=== PATIENT | male | born 1945 | race Hispanic/Latino ===

== ENCOUNTER 2023-08-19 15:27 | Emergency (ER) | payer MEDICARE, OTHER, SELFPAY ==
[2023-08-19 15:35] VITALS: BP 113/50
[2023-08-19 15:58] LABS: % Basophils 0.5 % (0-2); % Eosinophils 1.4 % (0-6); % Immature Granulocytes 0.2 % (0-0.5); % Lymphocytes 14.9 % (20.5-51.1); % Monocytes 10.5 % (1.7-9.3); % Neutrophils 72.5 % (42.2-75.2); Absolute Eosinophils 0.1 10^3/uL (0-0.7); Absolute Lymphocytes 0.9 10^3/uL (1.2-3.4); Absolute Monocytes 0.6 10^3/uL (0.1-0.6); Absolute Neutrophils 4.3 10^3/uL (1.4-6.5); Hematocrit 29.2 % (39.0-52.0); Hemoglobin 10.8 g/dL (13.0-18.0); Mean Corpuscular Hgb 33.1 pg (27.0-31.0); Mean Corpuscular Volume 89.6 fL (80.0-94.0); Mean Platelet Volume 10.5 fL (7.4-10.4); Nucleated Red Blood Cells % 0 % (-); Platelet Count 194 10^3/uL (130-400); Red Blood Cell Count 3.26 10^6/uL (4.70-6.10); Red Cell Dist. Width 12.8 % (11.5-14.5); White Blood Cell Count 5.9 10^3/uL (4.8-10.8)
[2023-08-19 16:10] LABS: ALT (SGPT) 13 U/L (0-50); AST (SGOT) 31 U/L (17-59); Albumin 4.3 g/dl (3.5-5.0); Alkaline Phosphatase 81 U/L (38-126); Blood Urea Nitrogen 17 mg/dl (9-20); Calcium 9.3 mg/dl (8.4-10.2); Carbon Dioxide 28 mmol/L (22-30); Chloride 102 mmol/L (98-107); Glucose 107 mg/dl (70-99); Potassium 4.4 mmol/L (3.5-5.1); Sodium 139 mmol/L (135-145); Total Bilirubin 0.4 mg/dl (0.2-1.3); Total Protein 6.4 g/dl (6.3-8.2); eGFR 51.13
[2023-08-19 17:56] VITALS: BMI 24.5
[2023-08-19 18:00] VITALS: BP 143/58
--- NOTE | 2023-08-19 18:07 | EDRN ---
Nicolasa FELDER in room w/pt.
--- NOTE | 2023-08-19 18:37 | ED.GENMED ---
History of Present Illness
General
Chief Complaint: Fall
Source: patient and spouse
Exam Limitations: none
Time Seen by Provider: 08/19/23 17:32
Nursing documentation reviewed up to this point in time: agreed with
Travel History
Have you had any contact with someone who has COVID-19?: No
Do you have any symptoms of coronavirus? Fever > 100 degrees, chills, cough, shortness of breath, sore throat, loss of taste or smell, muscle aches, or headache?: No
History of Present Illness
History of Present Illness:
77-year-old male with Tre history of dementia hypertension presenting to the emergency department today after a fall he had yesterday injuring his right hip ongoing discomfort to the right hip. Denies any his head denies losing consciousness
does remember the event has been having recurrent falls secondary to Parkinson's. Does fall very frequently has had slightly increased falling over the past week after having some improvement over the past month secondary to Parkinson's medications
that he started 1 month ago. Denies any chest pain shortness of breath numbness weakness. No changes in urination or bowel movements
Past History
Past History
ED Past Medical History: Cancer (bladder), HTN and Other (dementia)
ED Past Surgical History: Appendectomy
Social History
Tobacco: Former smoker
Alcohol: None
Drug: None
Personal:
Living: with family
Employment: Other
Family History
Family History: Other
Review of Systems
Review of Systems
Allergies reviewed?: Yes
All Other Systems: ROS reviewed and negative except as documented in HPI and ROS
Phy Exam
Physical Exam
Physical Exam:
GENERAL: Alert , in no apparent distress
EYE: pupils equal and reactive
NECK: Supple, no significant adenopathy.
ENT: o/p clr, mmm.
CARDIAC: Regular rate and rhythm .
LUNGS: Clear breath sounds bilaterally, no acute respiratory distress, no wheezes/rales/rhonchi
ABDOMEN: Soft, without focal tenderness, no r/g, no cvat
NEUROLOGICAL: Alert and oriented, no focal neuro deficits
SKIN: Warm and dry, skin intact.
MUSCULOSKELETAL: Mild pain to palpation to the right lateral hip otherwise able to move at the hip with full range of motion no overlying skin changes no edema, well perfused.
PSYCH: Normal and appropriate interaction.
Course
Orders/Labs/Results
Orders:
Orders
08/19/23 15:47
Complete Blood Count/With Diff Urgent
Comprehensive Metabolic Panel Urgent
08/19/23 18:20
Hip, Right 2-3 Views [CR Hip - RT w/wo Pel 2-3 Vw*] Urgent
Comment:
Reason For Exam: right hip pain after fall
Include a pelvis x-ray?: Yes
08/19/23 18:46
Ambulate Patient-Treatment ONCE
08/19/23 20:03
Case Management Consult ONCE
Case Management Consult: VN/Home Care
Abnormal Lab Results
08/19/23
15:47
RBC 3.26 L 10^6/uL
(4.70-6.10)
Hgb 10.8 L g/dL
(13.0-18.0)
Hct 29.2 L %
(39.0-52.0)
MCH 33.1 H pg
(27.0-31.0)
MPV 10.5 H fL
(7.4-10.4)
Absolute Lymphs (auto) 0.9 L 10^3/uL
(1.2-3.4)
Lymphocytes % 14.9 L %
(20.5-51.1)
Monocytes % 10.5 H %
(1.7-9.3)
Creatinine 1.4 H mg/dL
(0.7-1.3)
Glucose 107 H mg/dl
(70-99)
08/19/23 15:47
08/19/23 15:47
Vital Signs
Initial and Last Documented VS:
Initial Vital Signs
Temp Pulse Resp BP Pulse Ox
98.0 F 60 16 113/50 98
08/19/23 15:35 08/19/23 15:35 08/19/23 15:35 08/19/23 15:35 08/19/23 15:35
Last Documented Vital Signs
Temp Pulse Resp BP Pulse Ox
98.0 F 53 16 143/58 98
08/19/23 15:35 08/19/23 18:00 08/19/23 18:00 08/19/23 18:00 08/19/23 18:00
MDM/Problems Addressed
MDM/Problems Addressed:
77-year-old male presenting to the emergency department today with concerns of a fall at home does fall frequently secondary to Parkinson's at this point having hip discomfort. Denies additional concerns denies head trauma no neck pain no
additional signs of injury or discomfort from head to toe otherwise. X-ray performed of the hip. No emergent findings able to ambulate well with his walker after this. Appear stable for outpatient management consult placed for case management to
discuss any potential need of additional home care. Return precautions given.
*Critical Care Note
Total Time (30-74mins, 75-104mins- exclusive of procedures): Not Applicable
ED Attending Note
-
Portions of this chart may have been created with voice recognition software.� Occasional wrong word or��sound alike� substitutions may have occurred due to the inherent limitations of voice recognition software.
Discharge Plan
Departure
Patient Disposition: Home (Routine Discharge)
Date of Disposition: 08/19/23
Time of Disposition: 20:03
Patient with high blood pressure during this ER visit?: No
Condition: Good
Covid-19: Not Applicable
Discharge Problem:
Fall
Instructions: Preventing falls in adults
Referrals:
Juan C Sethi Jr., DO [Family Provider] -
Activity Restrictions/Additional Instructions:
You can to the emergency department today with concerns after a fall. You have an x-ray without signs of fracture. Please follow closely with your primary care doctor. Return to the emergency department for any worsening, new or concerning
symptoms.
Interventions
Interventions:
*Risk Screen - Suicide Last Done: 08/19/23 17:54
*General Assessment Last Done: 08/19/23 17:54
*Neglect/Abuse Screening Last Done: 08/19/23 17:54
ED- Fall Risk Assessment Last Done: 08/19/23 17:54
*ED COVID-19 Vaccine History Last Done: 08/19/23 15:35
*Nursing Disposition Last Done: 08/19/23 20:07
ED-Musculoskeletal Assessment Last Done: 08/19/23 17:56
ED- Neurological Assessment Last Done: 08/19/23 17:56
ED-Skin Assessment Last Done: 08/19/23 17:57
Discharge Date and Time
Discharge Date/Time: 08/19/23 20:08
--- NOTE | 2023-08-20 10:07 | CM ---
CM was consulted for home PT. CM spoke with patient's via phone and she is agreeable to [facility] to make arrangements for [facility]N. CM updated [facility] liaison engineer with new referral. CM will continue to follow as needed.
--- NOTE | 2023-08-20 10:18 | VNURNOTE ---
Home Health Liaison spoke with patient's Alysa by phone at [phone] to discuss [facility] nurse/therapy, visits, schedule and homebound status. Alysa is agreeable and understands that visits at home will be 2-3 x per week to assess and teach medical
management. Private caregiver discussed and she is unable to hire help but interested in more information.
Ada is aware that [facility] will contact them for start of care in 1-2 days after discharge from .
[facility] referral completed in [facility].
== END 2023-08-19 20:08 | disposition home or self-care (01) ==
LOC: EMR 15:27
PROVIDERS: Emergency Medicine; EMERGENCY PHYSICIAN Emergency Medicine; FAMILY PHYSICIAN Family Medicine
DX: M25.551 Pain in right hip (principal); W19.XXXA Unspecified fall, initial encounter; G20.A1 Parkinson's disease without dyskinesia, without mention of fluctuations; Z87.891 Personal history of nicotine dependence
CPT/HCPCS: 99284; 73502; 80053; 85025

== ENCOUNTER 2024-03-16 14:01 | Emergency (ER) | payer MEDICARE, OTHER, SELFPAY ==
[2024-03-16 14:03] VITALS: BP 148/50
[2024-03-16] MEDS: TORADOL 30 MG IM (16:54)
--- NOTE | 2024-03-16 17:29 | ED.GENMED ---
History of Present Illness
General
Chief Complaint: Fall
Source: patient and spouse
Exam Limitations: none
Time Seen by Provider: 03/16/24 15:00
Nursing documentation reviewed up to this point in time: agreed with
History of Present Illness
History of Present Illness:
6-year-old male past medical history of Alzheimer's Parkinson's presenting to the emergency department after 2 falls over the past week. He claims that he does fall commonly. He denies the falls being out of the ordinary for him. He has had some
ongoing left-sided rib pain and low back pain since which prompted him to come to the ER. He denies any lightheadedness chest pain shortness of breath palpitations preceding the falls. He claims that the falls were mechanical.
Past History
Past History
ED Past Medical History: Cancer (bladder), HTN and Other (dementia)
ED Past Surgical History: Appendectomy
Social History
Tobacco: Former smoker
Alcohol: None
Drug: None
Personal:
Living: with family
Employment: Other
Family History
Family History: Other
Review of Systems
Review of Systems
Allergies reviewed?: Yes
All Other Systems: ROS reviewed and negative except as documented in HPI and ROS
Phy Exam
Physical Exam
Physical Exam:
GENERAL: Alert , in no apparent distress
EYE: pupils equal and reactive
NECK: Supple, no significant adenopathy.
ENT: o/p clr, mmm.
CARDIAC: Regular rate and rhythm .
LUNGS: Clear breath sounds bilaterally, no acute respiratory distress, no wheezes/rales/rhonchi
ABDOMEN: Soft, without focal tenderness, no r/g, no cvat
NEUROLOGICAL: Alert and oriented, no focal neuro deficits
SKIN: Warm and dry, skin intact.
MUSCULOSKELETAL: Mild pain to palpation to the left lateral lower ribs no edema, well perfused.
PSYCH: Normal and appropriate interaction.
Course
Orders/Labs/Results
Orders:
Orders
03/16/24 15:36
CR Ribs-left 3 Vw W/pa Chest Urgent
Comment:
Reason For Exam: left lateral rib pain after fall
Lumbar Spine, 2 or 3 View [CR Lumbar Spine 2 Or 3 Views] Urgent
Comment:
Reason For Exam: low back paina fter fall
03/16/24 16:37
Ketorolac [Toradol] 30 mg IM NOW STA
Vital Signs
Initial and Last Documented VS:
Initial Vital Signs
Temp Pulse Resp BP Pulse Ox
97.9 F 65 18 148/50 96
03/16/24 14:03 03/16/24 14:03 03/16/24 14:03 03/16/24 14:03 03/16/24 14:03
Last Documented Vital Signs
Temp Pulse Resp BP Pulse Ox
97.9 F 65 18 148/50 96
03/16/24 14:03 03/16/24 14:03 03/16/24 14:03 03/16/24 14:03 03/16/24 14:03
MDM/Problems Addressed
MDM/Problems Addressed:
78-year-old male presenting to the emergency department after mechanical fall with concerns of left lateral rib discomfort and low back pain. Denies additional concerns at this time normal physical examination other than some mild tenderness to the
left lateral lower ribs no abdominal pain no CVA tenderness no midline back pain no overlying skin x-rays without signs of acute fracture. Patient advised for close outpatient follow-up. Return precautions given.
*Critical Care Note
Total Time (30-74mins, 75-104mins- exclusive of procedures): Not Applicable
ED Attending Note
-
Portions of this chart may have been created with voice recognition software.� Occasional wrong word or��sound alike� substitutions may have occurred due to the inherent limitations of voice recognition software.
Discharge Plan
Departure
Patient Disposition: Home (Routine Discharge)
Date of Disposition: 03/16/24
Time of Disposition: 17:38
Patient with high blood pressure during this ER visit?: No
Condition: Good
Covid-19: Not Applicable
Discharge Problem:
Contusion of rib
Instructions: Contusion (DC)
Referrals:
Juan C Sethi Jr., DO [Family Provider] -
Activity Restrictions/Additional Instructions:
You came to the emergency department today with concerns of rib and back discomfort after a fall. Your workup here did not show any emergent injuries. Please rest ice over the next few days and follow-up closely with your primary care doctor.
Return to the emergency department for any worsening, new or concerning symptoms.
Interventions
Interventions:
*Risk Screen - Suicide Last Done: 03/16/24 14:03
*General Assessment Last Done: 03/16/24 14:03
*Neglect/Abuse Screening Last Done: 03/16/24 14:03
ED-Musculoskeletal Assessment Last Done: 03/16/24 16:15
ED- Neurological Assessment Last Done: 03/16/24 16:15
ED-Skin Assessment Last Done: 03/16/24 16:15
Discharge Date and Time
Print Language: TELUGU
[2024-03-16 18:14] VITALS: BP 158/74
== END 2024-03-16 18:19 | disposition home or self-care (01) ==
LOC: EMR 14:01
PROVIDERS: EMERGENCY PHYSICIAN Emergency Medicine; FAMILY PHYSICIAN Family Medicine
DX: S20.219A Contusion of unspecified front wall of thorax, initial encounter (principal); M54.50 Low back pain, unspecified; W19.XXXA Unspecified fall, initial encounter; Z87.891 Personal history of nicotine dependence
CPT/HCPCS: 99284; 96372; 71101; 72100

== ENCOUNTER → 2024-05-07 10:54 | Outpatient (REF) | payer MEDICARE, OTHER, SELFPAY ==
[2024-05-07 12:25] LABS: % Basophils 0.8 % (0-2); % Eosinophils 2.2 % (0-6); % Immature Granulocytes 0.3 % (0-0.5); % Lymphocytes 15.4 % (20.5-51.1); % Monocytes 9.5 % (1.7-9.3); % Neutrophils 71.8 % (42.2-75.2); Absolute Basophils 0.1 10^3/uL (0-0.2); Absolute Eosinophils 0.1 10^3/uL (0-0.7); Absolute Lymphocytes 0.9 10^3/uL (1.2-3.4); Absolute Monocytes 0.6 10^3/uL (0.1-0.6); Absolute Neutrophils 4.3 10^3/uL (1.4-6.5); Hematocrit 33.1 % (39.0-52.0); Hemoglobin 10.9 g/dL (13.0-18.0); Mean Corp Hgb Conc. 32.9 g/dL (33.0-37.0); Mean Corpuscular Hgb 32.2 pg (27.0-31.0); Mean Corpuscular Volume 97.9 fL (80.0-94.0); Mean Platelet Volume 11.4 fL (7.4-10.4); Nucleated Red Blood Cells % 0 % (-); Platelet Count 212 10^3/uL (130-400); Red Blood Cell Count 3.38 10^6/uL (4.70-6.10); Red Cell Dist. Width 12.7 % (11.5-14.5)
[2024-05-07 13:02] LABS: ALT (SGPT) < 10 U/L (0-50); AST (SGOT) 33 U/L (17-59); Albumin 4.3 g/dl (3.5-5.0); Alkaline Phosphatase 70 U/L (38-126); Blood Urea Nitrogen 21 mg/dl (9-20); Carbon Dioxide 26 mmol/L (22-30); Chloride 103 mmol/L (98-107); Glucose 97 mg/dl (70-99); HDL Cholesterol 46 mg/dl; Iron 100 ug/dl (49-181); LDL Cholesterol, Calculated 60 mg/dl; Potassium 4.5 mmol/L (3.5-5.1); Sodium 143 mmol/L (135-145); Total Bilirubin 0.3 mg/dl (0.2-1.3); Total Cholesterol 120 mg/dl (50-199); Total Protein 6.2 g/dl (6.3-8.2); Triglyceride 73 mg/dl (10-149); Very Low Density Lipoprotein 14 mg/dl (0-30); eGFR > 60.00
[2024-05-07 13:13] LABS: Percent Saturation 35 % (20-50); Total Iron Binding Capacity 282 ug/dl (261-462)
[2024-05-07 13:29] LABS: TSH Reflex To Free T4 0.78 uIU/ml (0.47-4.68)
[2024-05-07 14:05] LABS: Folate 9.3 ng/ml (2.76-20); Vitamin B12 556 pg/ml (239-931)
[2024-05-07 14:50] LABS: Glycohemoglobin (HgbA1c) 4.9 % (4.0-5.6)
== END ==
LOC: REG 10:54
PROVIDERS: ATTENDING PHYSICIAN Family Medicine
DX: Z13.29 Encounter for screening for other suspected endocrine disorder (principal); N18.30 Chronic kidney disease, stage 3 unspecified; D64.9 Anemia, unspecified; Z12.11 Encounter for screening for malignant neoplasm of colon; R73.9 Hyperglycemia, unspecified; G30.9 Alzheimer's disease, unspecified; F02.80 Dementia in other diseases classified elsewhere, unspecified severity, without behavioral disturbance, psychotic disturbance, mood disturbance, and anxiety; E53.8 Deficiency of other specified B group vitamins; E78.00 Pure hypercholesterolemia, unspecified
CPT/HCPCS: 36415; 80053; 80061; 82607; 82728; 82746; 83036; 83540; 83550; 84443; 85025

== ENCOUNTER → 2024-07-09 16:15 | Outpatient (REF) | payer MEDICARE, OTHER, SELFPAY | LOC: RAD 16:15 | PROVIDERS: ATTENDING PHYSICIAN Specialist; FAMILY PHYSICIAN Family Medicine | DX: R29.6 Repeated falls (principal); M54.9 Dorsalgia, unspecified; N39.0 Urinary tract infection, site not specified | CPT/HCPCS: 72110; 73521 ==

== ENCOUNTER 2024-07-10 13:06 | Observation (INO) | payer MEDICARE, OTHER, SELFPAY ==
[2024-07-10] VITALS (18 sets, daily range): BP systolic 109–148; BP diastolic 43–82; PULSE 58–62; BMI 25.0; BMI 23.5
--- NOTE | 2024-07-10 09:21 | ED.CVA ---
History of Present Illness
General
Chief Complaint: CVA/TIA Symptoms
Time Seen by Provider: 07/10/24 09:21
Onset of Stroke Symptoms
Onset of symptoms known: No
Time pt last seen normal is known: Yes
Date last time pt seen normal: 07/09/24
Time last time pt seen normal: 20:00
History of Present Illness
History of Present Illness:
TIME OF INITIAL ENCOUNTER:
HPI: I spoke to EMS for history. The patient was last seen normal last evening at 8 PM when he went to bed. At around 4:00 this morning, he woke up and had left upper and left lower extremity weakness. EMS called a stroke alert. Take any
anticoagulation or antiplatelets. At 9:08 AM today, his left-sided weakness have resolved. However he developed vision loss. He does have a history of dementia.
EXAM:
GENERAL: Well appearing in no distress
HEENT: Moist oral mucosa
CARDIOVASCULAR: No murmurs, normal heart rate, regular rhythm, No chest wall tenderness
PULMONARY: No respiratory distress, breath sounds are clear and equal
ABDOMEN: Soft with no peritoneal signs, no tenderness
NEUROLOGIC: Good strength all extremities, no coordination deficits, he is not oriented to month
PSYCHIATRIC: Memory impaired
EXTREMITIES: Nontender, no edema, moves all extremities equally
SKIN: No rash, no lesions
NUMBER AND COMPLEXITY OF PROBLEMS ADDRESSED AT THE ENCOUNTER
� Chronic conditions affecting care: Dementia, Parkinson's
� Acute Exacerbation and/or Progression of Chronic Illness:
� Differential Diagnosis includes: CVA, TIA, hypoglycemia, electrolyte abnormality, progression of dementia, worsening Parkinson's
AMOUNT AND/OR COMPLEXITY OF DATA TO BE REVIEWED AND ANALYZED
� I performed an independent evaluation of and my interpretation is:
EKG: Sinus 58, normal axis, no acute ST normality
CT: CT head and CTA reviewed
X-rays:
Laboratory Studies: COVID-positive, urinalysis negative, white count 6.5, hemoglobin 8.9
Other:
� Review of other/old records: The patient was seen here in February with a rib contusion
� Clinical information was obtained by an independent historian: I spoke to EMS for history as summarized above
� Prescriptions/Medications Considered but not given:
� Further testing considered but not performed:
RISK OF COMPLICATIONS AND/OR MORBIDITY OR MORTALITY OF PATIENT MANAGEMENT
� Social determinants of health affecting care: Lives at home with
� Discussion with other providers: I discussed case with Dr. Gandhi.
� Escalation of care including admission/observation vs risk of discharge considered: The patient arrived around 9:20 AM and was sent to CT at 9:[address] Gandhi saw the patient immediately upon arrival.
ANY OTHER UPDATES:
I spoke to family. Over the last several days patient has been increasingly falling. No sign of intracranial hemorrhage. 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 Hemoglobin has dropped compared to 3 months ago however patient is
heme-negative. Overall family does not feel comfortable with him going home and is concerned that he will fall. Overall the left sided weakness has resolved.
Past History
Past History
ED Past Medical History: Cancer (bladder), HTN and Other (dementia)
ED Past Surgical History: Appendectomy
Social History
Tobacco: Former smoker
Alcohol: None
Drug: None
Personal:
Living: with family
Employment: Other
Family History
Family History: Other
Phy Exam
Physical Exam
Physical Exam:
See HPI
Course
Orders/Labs/Results
Orders:
Orders
07/10/24 09:[address] HEAD STROKE ALERT W/o Cont Urgent
Comment:
Reason For Exam: L sided weakness
07/10/24 09:21
CT HEAD/NECK ANG STROKE ALERT Urgent
Comment:
Reason For Exam: resolved L weakness; new vision change; falls
07/10/24 09:22
Electrocardiogram (*1) Urgent
Reason for Study: TIA/Stroke
EKG- Treatment ONCE
07/10/24 09:40
Complete Blood Count/With Diff Urgent
Comprehensive Metabolic Panel Urgent
Erythrocyte Sed Rate Urgent
Comment: ADD ON
Ferritin Urgent
Comment: ADD ON
Folate Urgent
Comment: ADD ON
Free T4 Urgent
Iron Urgent
Comment: ADD
Manual Differential Urgent
TSH Reflex To Free T4 Urgent
Comment: ADD ON
Total Iron Binding Urgent
Comment: ADD
Vitamin B12 Urgent
Comment: ADD ON
07/10/24 11:01
Urinalysis Reflex To Culture Urgent
Date Specimen was Collected: 07/10/24
Time Specimen was Collected: 10:58
07/10/24 11:45
Orthostatic Vital Signs As Directed
Orthostatic VS Frequency: BID
Comment: lying flat x 3 mins then check, seated 3 minutes check, stand 3 mins check
07/10/24 11:53
Add On- LAB Routine
Comments:: Please add to today's labs or draw as routine
Tests Added?: TSH reflex, Ferritin, Folate, Vit. B12, ESR
07/10/24 12:15
Add On- LAB Stat
Tests Added?: iron panel
07/10/24 12:37
CR Chest - 2 Views Stat
Comment:
Reason For Exam: cough
07/10/24 12:39
Admit/Transfer Patient As Directed
Co-Sign Provider:
Level of Care: Observation services
Assign to:: Telemetry
Physician / Group: allan
Diagnosis: ambulatory dysfunction
Reason for Telemetry: CVA/TIA
Date to Stop Telemetry: 07/13/24
Time to Stop Telemetry: 11:00
PRN Pain Medication Management As Directed
May give lesser potent ordered pain med per pt: Yes
preference::
Protocol:: Medication orders for pain may be administered in a
manner that supports deferring to patient preference
when the pt is:
- Requesting an ordered lesser potent pain medication.
Least to most potent pain medications are defined
as: acetaminophen < NSAID < tramadol < opioids
(morphine, oxycodone, hydromorphone).
- Requesting a lesser dose of the same medication IF
ORDERED.
- Requesting a less intrusive route of administration
if both routes are prescribed by the provider (PO <
IV).
07/10/24 12:41
Code Status As Directed
Resuscitation Status: Full Code
07/10/24 12:55
COVID-19 Antigen Stat
Source: Nasal Swab
Influenza A+B Rapid Molecular Stat
BRIAN Source: Nasal Swab
Specimen Description:
07/10/24 13:00
Aspirin Low Dose EC [Aspir Low (Enteric Coated)] 81 mg PO DAILY
07/13/24 11:00
DC Protocol for Telemetry ONCE
Abnormal Lab Results
07/10/24 07/10/24 07/10/24
09:21 09:40 12:55
RBC 2.75 L 10^6/uL
(4.70-6.10)
Hgb 8.9 L g/dL
(13.0-18.0)
Hct 26.2 L %
(39.0-52.0)
MCV 95.3 H fL
(80.0-94.0)
MCH 32.4 H pg
(27.0-31.0)
MPV 10.8 H fL
(7.4-10.4)
Band Neutrophils 5 H %
(0-3)
Lymphocytes (Manual) 8 L %
(20-51)
Monocytes (Manual) 22 H %
(2-9)
ESR 23 H mm/hour
(0-20)
Sodium 133 L mmol/L
(135-145)
BUN 24 H mg/dl
(9-20)
Glucose 102 H mg/dl
(70-99)
Calcium 8.3 L mg/dl
(8.4-10.2)
Iron 47 L ug/dl
(49-181)
TIBC 246 L ug/dl
(261-462)
% Saturation 19 L %
(20-50)
Total Protein 5.5 L g/dl
(6.3-8.2)
Albumin 3.4 L g/dl
(3.5-5.0)
TSH (Reflex) 0.44 L uIU/ml
(0.47-4.68)
SARS-CoV-2 Antigen Positive A
(Negative)
POC Glucose 109 H mg/dl
(70-99)
07/10/24 09:40
07/10/24 09:40
Vital Signs
Initial and Last Documented VS:
Initial Vital Signs
BP Pulse Ox
143/57 96
07/10/24 09:36 07/10/24 09:36
Last Documented Vital Signs
Pulse Resp BP Pulse Ox
60 11 124/49 96
07/10/24 14:30 07/10/24 14:30 07/10/24 14:00 07/10/24 14:30
*Critical Care Note
Total Time (30-74mins, 75-104mins- exclusive of procedures): Not Applicable
ED Attending Note
-
Portions of this chart may have been created with voice recognition software.� Occasional wrong word or��sound alike� substitutions may have occurred due to the inherent limitations of voice recognition software.
Discharge Plan
Departure
Patient Disposition: Admit
Date of Disposition: 07/10/24
Time of Disposition: 11:25
Presentation/result/management discussed w/ accepting MD/DO: Hospitalist
Discharge Problem:
Weakness
Interventions
Interventions:
*Risk Screen - Suicide Last Done: 07/10/24 09:47
*General Assessment Last Done: 07/10/24 09:47
*Neglect/Abuse Screening Last Done: 07/10/24 09:47
*ED COVID-19 Vaccine History Last Done: 07/10/24 09:59
ED- Pulmonary Assessment Last Done: 07/10/24 09:47
ED- Neurological Assessment Last Done: 07/10/24 09:47
ED- Cardiac Assessment Last Done: 07/10/24 09:47
ED Swallowing Screen Last Done: 07/10/24 09:59
[2024-07-10 09:22] LABS: Glucose - Point of Care 109 mg/dl (70-99)
--- NOTE | 2024-07-10 09:25 | CON.NEURO ---
Neuro Assessment/Plan
Assessment
Acute onset gait dysfunction beginning approximately 4 days prior to presentation to this hospital's emergency department in a patient with previously diagnosed parkinsonism
Differential diagnosis includes progressive supranuclear palsy.
Patient may have had worsening of gait due to orthostatic hypotension or subacute worsening of symptomatology despite increases in carbidopa/levodopa dosing provided on the day after increased fall frequency by his usual outpatient neurologist
Plan
Check orthostatic blood pressures with 3-minute increments between laying flat, seated, and standing
Recheck MRI of brain due to the patient's progressive worsening of symptomatology and suggested left hemibody weakness although not confirmed by the patient's family
Continue carbidopa/levodopa dosed as 25/100 mg 6 times a day
Will initiate aspirin 81 mg although, not clear if the patient would benefit from antiplatelet agents at this time since the presence of focal weakness was not confirmed by the patient's family and only suggested by EMS, not present on examination
currently
Continue patient's usual donepezil and memantine as memory stabilizing agents
Unclear etiology for the patient's anemia
Check blood work for additional metabolic abnormalities
Will follow peripherally
Consultation
Order
Date of Consultation: 07/10/24
Requesting Provider: Emergency department physician
Reason for Consult: Stroke alert
Subjective/Objective
Subjective Data
Date of Service: July 10, 2024
Right handed
Patient was in his usual state of health until approximately 4 days ago at which time the number of falls that he was experiencing suddenly increased. The patient's history is primarily obtained after review of the patient's medical history with
professional medical care providers as well as with the patient's family who were at bedside. The patient himself is unable to provide a coherent history.
The patient has been described as having cognitive decline since 2016 which has had workup by means of amyloid PET scan which was abnormal as well as BRANDON scan which was also abnormal. He is followed by a local neurologist for those issues and has
not had a change in medical therapy until the day of increased number of falls.
The patient has had a prior history of falling which has been infrequent until 4 days ago at which time the patient fell 3 times in a row. At that time they contacted their usual outpatient neurologist who recommended an increase in dosing of his
usual carbidopa/levodopa to a total of 6 doses a day from 4 doses a day. This however did not improve the patient's number of falls immediately and the patient again fell 3 times the following day although in the last 2 days he is only experienced
1 fall. There has been no warning prior to the fall although he is described as falling backwards each time. Reportedly, no head injuries with the falls.
Today, the patient was again described as having difficulty getting out of bed which has been the circumstances for the last several days and because this problem was persistent, they contacted EMS. EMS suggested that the patient had a left-sided
weakness upon examination and contacted this hospital with a stroke alert. The patient was also described as having decreased vision in the form of double vision although he is unable to confirm that at this time. No known modifying factors. The
patient himself is unaware of any weakness or visual changes currently.
Today, the patient began experiencing difficulty with getting out of bed at 0700 hrs. and had gone to sleep at 2100 hrs. According to the patient's family, the patient did not awaken at 0400 hrs., contrary to EMS report.
Objective Data
Patient Allergies
No Known Allergies Allergy (Verified 08/19/23 15:37)
CVA Assessment
Onset of Stroke Symptoms
Onset of symptoms known: No
Date of onset of symptoms: 07/07/24
Time pt last seen normal is known: No
Date last time pt seen normal: 07/07/24
NIH Stroke Score
Level of Consciousness: 0 - Alert
LOC Questions: 1-Answers one correctly
LOC Commands: 0-Performs both correctly
Best Horizontal Gaze: 0-Normal
Visual Antunez: 1=Partial hemianopia
Facial Palsy: 0=Normal, symmetrical
Motor - Right Arm: 0=No drift 10 seconds
Motor - Left Arm: 0=No drift 10 seconds
Motor - Right Le-No drift 5 seconds
Motor - Left Le-No drift 5 seconds
Limb Ataxia: 0-Absent
Sensation: 0-Normal
Best Language: 0-No aphasia
Dysarthria: 0-Normal
Extinction and Inattention: 0-No abnormality
Total Score:: 2
Tenecteplase Contraindications
Inclusion and Exclusion criteria reviewed: Yes
Review of Systems
-
Unable to obtain full review of systems at this time due to: Dementia
History Source: Patient
All other systems: Reviewed and negative
EENT: Negative Swallowing Difficulty
Respiratory: Negative Trouble Breathing
Cardiac: Negative Chest Pain
Genitourinary: Frequency
Neuro: Dizzy; Negative Headache or Speech Problem
Physical Exam
-
General: No Apparent Distress and Appears Stated Age
Eyes: OU Absent Papilledema, Round OU, [place] Conjunctivae and No Ptosis
HEENT: Anicteric and Moist Mucous Membranes
Neck: Full Range of Motion
Respiratory: No Dyspnea
Cardiac: No JVD
GI: Non-distended
Skin: Unremarkable
Extremities: No Clubbing, No Cyanosis and No Edema
Psych: Intact Judgement/Insight
Extended Neurological Exam
Mood & Affect: Mood Unremarkable and Affect Unremarkable
Attention Span & Concentration: Awake, Alert, Interactive and No Difficulty with 2 Step Request
Memory: Able to Recall (Year, family members), Reduced (For the correct month, location) and Unable to Recall Personal History
Tremor: Hand Tremor Absent and Head Tremor Absent
Speech: Quality Unremarkable and Quantity Unremarkable
Cranial Nerve II: Left Eye: Pupillary Reactivity Unremarkable, Pupillary Size Unremarkable and Visual Antunez Intact
Cranial Nerve II: Right Eye: Pupillary Reactivity Unremarkable, Pupillary Size Unremarkable and Visual Antunez Intact
Cranial Nerves III, IV, : Extraocular Movement: Extraocular Movement Full in all Directions
Cranial Nerve VII: Facial Symmetry: Normal Facial Symmetry
Cranial Nerve VIII: Hearing: Unremarkable Hearing to Normal Conversational Volume
Cranial Nerves IX, X: Palate Movement: Palate Elevation Symmetric
Cranial Nerve XI: Shoulder Shrug: Unremarkable
Cranial Nerve XII: Tongue Protusion: Midline
Muscle Strength, Overall: Full Throughout
Muscle Bulk & Tone: Bulk Unremarkable and Tone Unremarkable
Pronator Drift: No Drift in Upper Extremities
Deep Tendon Reflexes: Unremarkable Throughout
Touch Sensation: Unremarkable
Coordination: Cyjxoj-yhqs-zckyof Testing Unremarkable
Babinski Sign: Absent Bilaterally
Medications
-
Home Medications
�Medication �Instructions �Recorded
amlodipine 10 mg tablet (Norvasc) 10 mg PO DAILY 07/10/24
amoxicillin 500 mg capsule 500 mg PO Q8H 07/10/24
atorvastatin 10 mg tablet (Lipitor) 10 mg PO HS 07/10/24
carbidopa 25 mg-levodopa 100 mg 1 tab PO QID 07/10/24
tablet
desvenlafaxine succinate 100 mg 100 mg PO DAILY 07/10/24
tablet,extended release 24 hr
donepezil 10 mg tablet 10 mg PO DAILY 07/10/24
memantine 10 mg tablet 10 mg PO BID 07/10/24
nebivolol 10 mg tablet (Bystolic) 10 mg PO DAILY 07/10/24
tamsulosin 0.4 mg capsule (Flomax) 0.4 mg PO DAILY 07/10/24
trazodone 100 mg tablet 100 mg PO HS 07/10/24
Past History
Past History
ED Past Medical History: Cancer (bladder), HTN and Other (dementia, parkinsonism)
ED Past Surgical History: Appendectomy
Social History
Tobacco: Former smoker
Alcohol: None
Drug: None
Personal:
Living: with family
Employment: Other
Family History
Family History: Other (Alzheimer's disease in patient's father)
[2024-07-10 10:17] LABS: ALT (SGPT) < 10 U/L (0-50); AST (SGOT) 24 U/L (17-59); Albumin 3.4 g/dl (3.5-5.0); Alkaline Phosphatase 84 U/L (38-126); Blood Urea Nitrogen 24 mg/dl (9-20); Calcium 8.3 mg/dl (8.4-10.2); Carbon Dioxide 26 mmol/L (22-30); Chloride 98 mmol/L (98-107); Estimated Creatinine Clearance 52 ml/min; Glucose 102 mg/dl (70-99); Potassium 4.6 mmol/L (3.5-5.1); Sodium 133 mmol/L (135-145); Total Bilirubin 0.3 mg/dl (0.2-1.3); Total Protein 5.5 g/dl (6.3-8.2); eGFR > 60.00
[2024-07-10 10:22] LABS: Hematocrit 26.2 % (39.0-52.0); Hemoglobin 8.9 g/dL (13.0-18.0); Mean Corpuscular Hgb 32.4 pg (27.0-31.0); Mean Corpuscular Volume 95.3 fL (80.0-94.0); Mean Platelet Volume 10.8 fL (7.4-10.4); Platelet Count 175 10^3/uL (130-400); Red Blood Cell Count 2.75 10^6/uL (4.70-6.10); Red Cell Dist. Width 12.6 % (11.5-14.5); White Blood Cell Count 6.5 10^3/uL (4.8-10.8)
[2024-07-10 11:13] LABS: Absolute Neutrophils -Man Diff 4.2 10^3/uL (1.4-6.5); Atypical Lymphocytes 2 %; Band Neutrophils 5 % (0-3); Eosinophils 3 % (0-6); Lymphocytes 8 % (20-51); Monocytes 22 % (2-9); Platelets Checked Yes; Segmented Neutrophils 60 % (42-75)
[2024-07-10 11:14] LABS: Normal RBC Morphology Yes; Total Cells Counted 100
[2024-07-10 11:24] LABS: Urine Albumin Trace (Neg - Trace); Urine Bilirubin Negative (Negative); Urine Character Clear (Clear); Urine Color Yellow; Urine Glucose Negative (Negative); Urine Ketone Negative (Negative); Urine Leukocyte Negative (Negative); Urine Nitrite Negative (Negative); Urine Occult Blood Negative (Negative); Urine Specific Gravity 1.005 (<1.030); Urine Urobilinogen Negative (Neg - 1+); Urine pH 6.5 (5.0-9.0)
--- NOTE | 2024-07-10 12:08 | HPS.HSE ---
Family Physician
-
Family Physician: Juan C Sethi Jr.
Chief Complaint
-
Multiple falls
Weakness
History of Present Illness
78-year-old with past medical history for Parkinson's history of bladder cancer, balance issues, prostate hyperplasia, dementia, hypertension, Alzheimer's, depression, hyperlipidemia presented to us with multiple falls since last Saturday. Patient
stated , if he takes a sharp turn , he loses the balance and falls.he fell on his back couple times .he hit his head on the floor 1 time .today morning he was not able to stand or walk.he was noted confused as well. he has been coughing since
yesterday .patient stated the dry cough patient denied congestion, fever, chills .patient denied headache, dizziness or syncope. Patient denied chest pain or short of breath .patient denied dysuria materia patient denied abdominal pain, nausea,
vomiting or diarrhea.
Head CT with no acute findings, UA with no acute findings. Head neck CTA with 70% stenosis b/l. Patient was evaluated by neurology. Started on aspirin. Recommended MRI
Medical History
Past Medical History
Past Medical History: Reports Other
Additional Past Medical History:
Chronic anemia
Ambulatory dysfunction
Stage III chronic kidney disease
Bladder cancer
BPH
Dementia
Alcohol abuse
Hypertension
Alzheimer's disease and depression
Lipidemia
Past Surgical History: Reports Other
Additional Past Surgical History:
Polypectomy
Appendectomy
Tonsillectomy
Kidney stone removal
Bladder surgery for bladder cancer
Social History
Tobacco: Vaping
Alcohol: None
Drug: None
Personal:
Living: With Family
Family History
Family History: Not pertinent
Allergies / Home Medications
Allergies reflects when Allergies were last updated in [employer].
Home Medications with original date entered in [employer]
Allergy/Medication List:
Allergies
Allergy/AdvReac Type Severity Reaction Status Date / Time
No Known Allergies Allergy Verified 08/19/23 15:37
Home Medications
acetaminophen 325 mg tablet (Tylenol) 650 mg PO BIDPRN PRN MILD PAIN 07/10/24
amlodipine 10 mg tablet (Norvasc) 10 mg PO DAILY 07/10/24
amoxicillin 500 mg capsule 500 mg PO Q8H 07/10/24
atorvastatin 10 mg tablet (Lipitor) 10 mg PO DAILY 07/10/24
carbidopa 25 mg-levodopa 100 mg tablet 2 tab PO TID@0830,1500,1900 07/10/24
desvenlafaxine succinate 100 mg tablet,extended release 24 hr 100 mg PO DAILY 07/10/24
donepezil 10 mg tablet 20 mg PO HS 07/10/24
memantine 10 mg tablet 10 mg PO BID 07/10/24
nebivolol 10 mg tablet (Bystolic) 10 mg PO DAILY 07/10/24
tamsulosin 0.4 mg capsule (Flomax) 0.4 mg PO HS 07/10/24
trazodone 100 mg tablet 200 mg PO HS 07/10/24
Review of Systems
-
Constitutional: Reports No Symptoms
EENT: Reports No Symptoms
Respiratory: Reports No Symptoms
Cardiac: Reports No Symptoms
Abdomen/GI: Reports No Symptoms
: Reports No Symptoms
Musculoskeletal: Reports No Symptoms
Skin: Reports No Symptoms
Neurological: Reports No Symptoms and Weakness
Endocrine: Reports No Symptoms
Hematologic/Lymphatic: Reports No Symptoms
Psych: Reports No Symptoms
Physical Exam
Vital Signs
Vital Signs
Pulse Resp BP Pulse Ox
54 13 133/53 97
07/10/24 10:45 07/10/24 10:45 07/10/24 10:00 07/10/24 10:45
Physical Exam
General: Well Developed, Well Nourished and No Apparent Distress
HEENT: NormoCephalic, Moist mucous membranes and Atraumatic
Respiratory: Clear
Cardiac: S1/S2 and Regular Rhythm; No Murmur or Rub
GI: Soft, Non Tender, Non Distended and Normal Bowel Sounds; No Organomegaly
Rectal: Deferred by Provider
Musculoskeletal: No Clubbing, No Cyanosis and No Edema
Skin: No Rash
Neuro: AO x 3 and Nonfocal/grossly intact
Psych: Calm
Laboratory Results
-
07/10/24 09:40
07/10/24 09:40
Laboratory Results
Total Bilirubin 0.3 mg/dl (0.2-1.3) 07/10/24 09:40
AST 24 U/L (17-59) 07/10/24 09:40
ALT < 10 U/L (0-50) 07/10/24 09:40
Alkaline Phosphatase 84 U/L (38-126) 07/10/24 09:40
Data Reviewed
-
Diagnostic Radiology: Report Reviewed by me
CT Scan: Report Reviewed by me
Lab Data: Labs Reviewed by me
Impression/Plan
-
#left arm weakness/metabolic encephalopathy likely orthostatics secondary to parkinsonism/r/o acute CVA
#frequent fall
-PT/OT consult
-UA negative for acute infection
-CT head negative
-CTA with b/l proximal ICA stenosis 60-70%
-Obtain orthostatic
-MRI of the brain
-Aspirin continued
#cough likely URI
-obtain flu, covid
-chest x ray ordered
#acute on chronic anemia
-heme negative
-hgb 8.9
-obtain iron panel
#hyponatremia likely hypovolemic
-na 133
-ctm
# Essential hypertension
-Norvasc, nebivolol continued
# Hyperlipidemia
-Statin continued
# History of Parkinson
# History of Alzheimer's
-Carbidopa levodopa continued
-Aricept continued
-Memantine continue
# Depression
-Desvenlafaxine continued
-Trazodone for sleep
# BPH
-Flomax continue
#recent tooth infection
-s/p root canal yesterday
-on amoxicillin until Saturday
#DVT prophylaxis
-scd
#CODE status
-full code
--- NOTE | 2024-07-10 12:50 | W.PN.UPDATE ---
Update Note
Progress Note Update
This is an addendum to the H&P written by Cami Downs on 07/10/2024. Patient seen examined independently with COMPACT ASSEMBLER.
78-year-old male past medical history of dementia, Parkinson's disease, hypertension, bladder cancer, presenting with bilateral lower extremity weakness and a fall since Saturday. Also with confusion starting today and dry cough for past 3 days.
Also with some blurry vision for few days. No fever. Back pain from fall.
Has been on amoxicillin for 3 days for root canal yesterday.
Initially there was concern for left-sided weakness however this is not the case as per family. CT head shows no acute abnormality. CTA shows bilateral proximal ICA stenoses 60 to 70%.
Urinalysis negative.
Hemoglobin of 8.9 from 10.9 in April. Macrocytic anemia.
Concern for metabolic encephalopathy possibly from viral URI. Neurology was consulted and noted partial hemianopsia and recommending aspirin for now, MRI brain.
Check chest x-ray, COVID and influenza.
Monitor hemoglobin for now. Check iron studies, B12 and folate. No evidence of bleeding.
[2024-07-10] MEDS: ASPIR LOW (ENTERIC COATED) 81 MG PO (12:52)
[2024-07-10 13:12] LABS: Iron 47 ug/dl (49-181)
[2024-07-10 13:22] LABS: Percent Saturation 19 % (20-50); Total Iron Binding Capacity 246 ug/dl (261-462)
[2024-07-10 13:26] LABS: COVID-19 Antigen Positive (Negative)
[2024-07-10 13:31] LABS: Erythrocyte Sed Rate 23 mm/hour (0-20)
[2024-07-10 13:46] LABS: TSH Reflex To Free T4 0.44 uIU/ml (0.47-4.68)
[2024-07-10 14:22] LABS: Folate 5.5 ng/ml (2.76-20); Vitamin B12 417 pg/ml (239-931)
[2024-07-10 16:59] LABS: Free T4 0.89 ng/dl (0.78-2.19)
[2024-07-10] MEDS: AMOXIL 500 MG PO (18:01)
[2024-07-10] MEDS: SINEMET 25-100 PO (18:01)
[2024-07-10] MEDS: NAMENDA 10 MG PO (20:26)
[2024-07-10] MEDS: SINEMET 25-100 2 TABLET PO (20:26)
[2024-07-10] MEDS: ARICEPT 20 MG PO (21:36)
[2024-07-10] MEDS: DESYREL 200 MG PO (21:36)
[2024-07-10] MEDS: FLOMAX 0.4 MG PO (21:36)
[2024-07-11] VITALS (8 sets, daily range): BP systolic 103–151; BP diastolic 46–66; PULSE 55–68
[2024-07-11] MEDS: AMOXIL 500 MG PO ×3 (01:29→17:34)
[2024-07-11 08:24] LABS: Hematocrit 28.4 % (39.0-52.0); Hemoglobin 9.7 g/dL (13.0-18.0); Mean Corp Hgb Conc. 34.2 g/dL (33.0-37.0); Mean Corpuscular Hgb 32.2 pg (27.0-31.0); Mean Corpuscular Volume 94.4 fL (80.0-94.0); Mean Platelet Volume 11.1 fL (7.4-10.4); Platelet Count 196 10^3/uL (130-400); Red Blood Cell Count 3.01 10^6/uL (4.70-6.10); Red Cell Dist. Width 12.5 % (11.5-14.5); White Blood Cell Count 6.5 10^3/uL (4.8-10.8)
--- NOTE | 2024-07-11 08:34 | W.PN.HOSP.TC ---
Today's Communication/Plan
-
see bold. Pt will be discharge if no acute CVA on MRI brain. Discussed with neuro and Nubia Hardin of case management.
Assessment / Plan
Assessment / Plan
Gen: NAD, AAOx3.
Eyes: EOMI, PERRLA, no scleral icterus.
Neck: supple.
CV: RRR, +S1/S2, no m/r/g.
Resp: CTAB, no rales, wheezes, or rhonchi.
Abd: +BS, soft, NT, ND
Skin: No rashes.
Neuro: CN 2-12 intact, non-focal.
Psych: Normal mood and affect.
CTA head/neck: No large vessel occlusions or aneurysms appreciated. Bilateral proximal ICA stenoses, greater on the left and likely on the order of 60-70%.
CT head: No acute intracranial abnormalities. Moderate diffuse cortical atrophy with mild nonspecific white matter changes.
CXR: No acute disease of the chest. Mild cardiomegaly.
Generalized LE weakness, frequent falls:
-CTA head and neck with B/L prox ICA stenoses, 60-70%
-check MRI brain
-cont ASA/statin
-neuro consulted, case discussed with Dr. Gandhi
-acute COVID infection: CXR clear, saturating well on RA, supportive care
-It is most likely that the patient's weakness and acute metabolic encephalopathy is due to acute COVID infection
Other problems:
Chronic anemia, Fe def: Hb stable, start PO Fe
Mild hyponatremia, resolved
Essential hypertension: Cont Norvasc/nebivolol
Hyperlipidemia: cont statin
Parkinson Disease: cont Sinemet
Alzheimer's dementia: Cont Aricept/Namenda
Depression: cont Desvenlafaxine/Trazodone
BPH: cont Flomax
Recent tooth infection: s/p root canal debridement 07/09/24, cont Amoxicillin
Family updated at bedside.
FULL/SCDs + Lovenox (adding Lovenox today)
Anticipated Discharge: Today
Subjective/Interval History
-
Date of Service: July 11, 2024
No new complaints.
Objective Data
-
Labs:
Laboratory Results
07/11/24
07:22
WBC 6.5
Hgb 9.7 L
Hct 28.4 L
Plt Count 196
Sodium Pending
Potassium Pending
Chloride Pending
Carbon Dioxide Pending
BUN Pending
Creatinine Pending
Glucose Pending
Calcium Pending
Vital Signs:
Vital Signs
Temp Pulse Resp BP Pulse Ox
99.3 F 59 16 149/53 97
07/11/24 07:45 07/11/24 07:45 07/11/24 07:45 07/11/24 07:45 07/11/24 07:45
I&O
07/10/24 07/11/24 07/12/24
06:59 06:59 06:59
Intake Total 480 / 480
Output Total 125 / 995 870 / 870
Balance -125 / -515 -390 / -390
[2024-07-11 08:35] LABS: Blood Urea Nitrogen 21 mg/dl (9-20); Calcium 8.5 mg/dl (8.4-10.2); Carbon Dioxide 27 mmol/L (22-30); Chloride 99 mmol/L (98-107); Estimated Creatinine Clearance 54 ml/min; Glucose 89 mg/dl (70-99); HDL Cholesterol 39 mg/dl; LDL Cholesterol, Calculated 59 mg/dl; Potassium 4.7 mmol/L (3.5-5.1); Sodium 136 mmol/L (135-145); Total Cholesterol 117 mg/dl (50-199); Triglyceride 99 mg/dl (10-149); Very Low Density Lipoprotein 19 mg/dl (0-30); eGFR > 60.00
[2024-07-11] MEDS: SINEMET 25-100 2 TABLET PO ×3 (08:49→18:35)
[2024-07-11] MEDS: NORVASC 10 MG PO (08:49)
[2024-07-11] MEDS: AMOXIL PO (08:50)
[2024-07-11] MEDS: BYSTOLIC 10 MG PO (08:50)
[2024-07-11] MEDS: PRISTIQ 100 MG PO (08:50)
[2024-07-11] MEDS: NAMENDA 10 MG PO ×2 (08:50→20:45)
[2024-07-11] MEDS: ASPIR LOW (ENTERIC COATED) 81 MG PO (08:50)
[2024-07-11] MEDS: LIPITOR 10 MG PO (08:50)
--- NOTE | 2024-07-11 09:48 | W.PN.NEURO.1 ---
Today's Communication / Plan
-
Continue carbidopa/levodopa dosed as 25/100 mg 6 times a day
May discontinue newly initiated aspirin 81 mg
Continue patient's usual donepezil and memantine as memory stabilizing agents
Neuro Assessment/Plan
Assessment
Acute onset gait dysfunction beginning approximately 4 days prior to presentation to this hospital's emergency department in a patient with previously diagnosed parkinsonism
Differential diagnosis includes progressive supranuclear palsy.
Patient may have had worsening of gait due to current COVID-19 infection
No evidence of orthostasis
Plan
Continue carbidopa/levodopa dosed as 25/100 mg 6 times a day
May discontinue newly initiated aspirin 81 mg
Continue patient's usual donepezil and memantine as memory stabilizing agents
Will follow as needed. Patient should follow-up with his usual outpatient neurologist
Subjective/Objective
Subjective Data
Date of Service: July 11, 2024
Objective Data
Vital Signs
Temp Pulse Resp BP Pulse Ox
37.4 C 59 16 149/53 97
07/11/24 07:45 07/11/24 07:45 07/11/24 07:45 07/11/24 07:45 07/11/24 07:45
Lab Results
07/11/24 07:22
07/11/24 07:22
Sodium 136 mmol/L (135-145) 07/11/24 07:22
Potassium 4.7 mmol/L (3.5-5.1) 07/11/24 07:22
BUN 21 mg/dl (9-20) H 07/11/24 07:22
Glucose 89 mg/dl (70-99) 07/11/24 07:22
Calcium 8.5 mg/dl (8.4-10.2) 07/11/24 07:22
LDL Cholesterol, Calc 59 mg/dl 07/11/24 07:22
Vitamin B12 417 pg/ml (239-931) 07/10/24 09:40
Patient Allergies
No Known Allergies Allergy (Verified 08/19/23 15:37)
Past History
Past History
ED Past Medical History: Cancer (bladder), HTN and Other (dementia, parkinsonism)
ED Past Surgical History: Appendectomy
Social History
Tobacco: Former smoker
Alcohol: None
Drug: None
Personal:
Living: with family
Employment: Other
Family History
Family History: Other (Alzheimer's disease in patient's father)
Medications
-
Medications:
Generic Name Dose Route Start Last Admin
Trade Name Freq PRN Reason Stop Dose Admin
Acetaminophen 650 mg 07/10/24 16:58
Acetaminophen 650 Mg Rectal Suppository RECTAL 08/07/24 16:57
Q4HPRN PRN
ANN, mild pain, or temp >100.4F
Acetaminophen 650 mg 07/10/24 16:58
Acetaminophen 325 Mg Tablet PO 08/07/24 16:57
Q4HPRN PRN
ANN, mild pain, or temp >100.4F
Amlodipine Besylate 10 mg 07/11/24 08:00 07/11/24 08:49
Amlodipine 10 Mg Tablet PO 08/08/24 07:59 10 mg
DAILY ARI Administration
Amoxicillin 500 mg 07/10/24 18:00 07/11/24 08:50
Amoxicillin 500 Mg Capsule PO 500 mg
Q8H ARI Administration
Aspirin 81 mg 07/10/24 13:00 07/11/24 08:50
Aspirin 81 Mg (Enteric Coated) Tablet PO 08/07/24 12:59 81 mg
DAILY ARI Administration
Atorvastatin Calcium 10 mg 07/11/24 08:00 07/11/24 08:50
Atorvastatin (Lipitor) 10 Mg Tablet PO 08/08/24 07:59 10 mg
DAILY ARI Administration
Carbidopa/Levodopa 2 tablet 07/10/24 16:58 07/11/24 08:49
Carbidopa (25 Mg)/Levodopa (100 Mg) Regular Release Tablet PO 08/07/24 16:57 2 tablet
TID@0830,1500,1900 ARI Administration
Desvenlafaxine Succinate 100 mg 07/11/24 08:00 07/11/24 08:50
Desvenlafaxine Succinate (Pristiq) 100 Mg Tab.Er.24h PO 08/08/24 07:59 100 mg
DAILY ARI Administration
Donepezil HCl 20 mg 07/10/24 22:00 07/10/24 21:36
Donepezil Hcl 10 Mg Tablet PO 08/07/24 21:59 20 mg
HS ARI Administration
Enoxaparin Sodium 40 mg 07/11/24 18:00
Enoxaparin Sodium 40 Mg/0.4 Ml Syringe SC 08/08/24 17:59
QPM ARI
Ferrous Sulfate 325 mg 07/11/24 09:00
Ferrous Sulfate 325 Mg Tablet PO 08/08/24 08:59
DAILY ARI
Guaifenesin/Dextromethorphan 10 ml 07/11/24 09:29
Guaifenesin/Dextromethorphan 200 Mg/10 Ml Cup PO 08/08/24 09:28
Q4HPRN PRN
cough
Memantine 10 mg 07/10/24 20:00 07/11/24 08:50
Memantine 10 Mg Tablet PO 08/07/24 19:59 10 mg
BID ARI Administration
Nebivolol 10 mg 07/11/24 08:00 07/11/24 08:50
Nebivolol Hcl 10 Mg Tablet PO 08/08/24 07:59 10 mg
DAILY ARI Administration
Sodium Chloride 0 flush 07/10/24 17:00
Sodium Chloride 0.9% (Flush) Syringe IV 08/07/24 16:59
PER PROTOCOL ARI
Tamsulosin HCl 0.4 mg 07/10/24 22:00 07/10/24 21:36
Tamsulosin 0.4 Mg Capsule PO 08/07/24 21:59 0.4 mg
HS ARI Administration
Trazodone HCl 200 mg 07/10/24 22:00 07/10/24 21:36
Trazodone 100 Mg Tablet PO 08/07/24 21:59 200 mg
HS ARI Administration
[2024-07-11] MEDS: FEOSOL 325 MG PO (10:19)
[2024-07-11] MEDS: ROBITUSSIN DM 10 ML PO (10:19)
[2024-07-11 11:39] LABS: Glycohemoglobin (HgbA1c) 4.9 % (4.0-5.6)
--- NOTE | 2024-07-11 12:17 | CM ---
Reviewed the chart notes and spoke with the patient via telephone due to Covid + status. [facility] letter explained. The patient had no questions with regards to the letter.
The patient resides with his spouse in a two story home with two steps to enter. Patient has first floor bedroom and bath. The patient uses a rolling walker with ambulation. The patient has had [facility] in the past, but no SNF. The patient
confirmed his pharmacy of choice is [facility]. CM continues to be available to patient/family and is monitoring medical plan for needs at discharge.
Plan: Discharge plans will depend on the patient's progress.
--- NOTE | 2024-07-11 14:35 | PTOTSP ---
Speech Pathology
Clinical Swallow Evaluation
78M with suspected metabolic encephalopathy from viral URI 2/2 COVID 19 (MRI of brain pending), presents with a functional oropharyngeal swallow. No overt concerns for aspiration or dysphagia during evaluation this date. Aspiration risk is increased
2/2 Parkinson's diagnosis.
Recommend:
1. Continue with Regular textures (IDDSI 7), thin liquids (IDDSI 0)
2. Meds as best tolerated
3. Aspiration precautions
4. SUPERVISOR TUNNEL HEADING service to follow up x1 pending MRI results and possible discharge this evening
[2024-07-11] MEDS: LOVENOX 40 MG SC (17:34)
--- NOTE | 2024-07-11 17:41 | W.PN.UPDATE ---
Update Note
Progress Note Update
MRI brain: There are no focal or acute intracranial abnormalities.
There is mild cortical and cerebellar atrophy with mild nonspecific white matter changes as described above.
There is mild bilateral ethmoid sinusitis.
Pt is medically cleared for d/c.
[2024-07-11] MEDS: FLOMAX 0.4 MG PO (20:45)
[2024-07-11] MEDS: DESYREL 200 MG PO (20:45)
[2024-07-11] MEDS: ARICEPT 20 MG PO (20:45)
[2024-07-12] MEDS: AMOXIL 500 MG PO ×2 (02:15→10:06)
[2024-07-12 03:20] VITALS: BP 138/57
--- NOTE | 2024-07-12 07:04 | W.PN.HOSP.TC ---
Today's Communication/Plan
-
d/c
Assessment / Plan
Assessment / Plan
Gen: NAD, AAOx3.
Eyes: EOMI, PERRLA, no scleral icterus.
Neck: supple.
CV: RRR, +S1/S2, no m/r/g.
Resp: CTAB, no rales, wheezes, or rhonchi.
Abd: +BS, soft, NT, ND
Skin: No rashes.
Neuro: CN 2-12 intact, non-focal.
Psych: Normal mood and affect.
CTA head/neck: No large vessel occlusions or aneurysms appreciated. Bilateral proximal ICA stenoses, greater on the left and likely on the order of 60-70%.
CT head: No acute intracranial abnormalities. Moderate diffuse cortical atrophy with mild nonspecific white matter changes.
CXR: No acute disease of the chest. Mild cardiomegaly.
MRI brain: No focal or acute intracranial abnormalities. Mild cortical and cerebellar atrophy with mild nonspecific white matter changes as described above. Mild bilateral ethmoid sinusitis.
Generalized LE weakness, frequent falls:
-CTA head and neck with B/L prox ICA stenoses, 60-70%, outpt vascular eval
-MRI brain without CVA
-neuro saw in c/s, case discussed with Dr. Gandhi on 07/11/24
-acute COVID infection: CXR clear, saturating well on RA, supportive care
-It is most likely that the patient's weakness and acute metabolic encephalopathy was due to acute COVID infection
Other problems:
Chronic anemia, Fe def: Hb stable, cont PO Fe
Mild hyponatremia, resolved
Essential hypertension: Cont Norvasc/nebivolol
Hyperlipidemia: cont statin
Parkinson Disease: cont Sinemet
Alzheimer's dementia: Cont Aricept/Namenda
Depression: cont Desvenlafaxine/Trazodone
BPH: cont Flomax
Recent tooth infection: s/p root canal debridement 07/09/24, cont Amoxicillin
Family updated at bedside.
FULL/SCDs + Lovenox
Medically cleared for d/c. Case management aware.
Total time spent on d/c = 31 min. This included today's physical exam, progress note, review of laboratory and diagnostic data, preparation of discharge documents and prescriptions, and discussions about the pt's hospital course and discharge plan
with the patient and other vice president medical affairs involved in the patient's care.
Anticipated Discharge: Today
Subjective/Interval History
-
Date of Service: July 12, 2024
No new complaints other than difficulty with speech.
Objective Data
-
Vital Signs:
Vital Signs
Temp Pulse Resp BP Pulse Ox
97.7 F 61 16 138/57 98
07/12/24 03:20 07/12/24 03:20 07/12/24 03:20 07/12/24 03:20 07/12/24 03:20
I&O
07/11/24 07/12/24 07/13/24
06:59 06:59 06:59
Intake Total 1560 / 1560
Output Total 125 / 995 2069
Balance -125 / -515 -510 / -510
[2024-07-12 07:16] VITALS: BP 142/52
[2024-07-12 07:17] VITALS: BP 114/95; BP 133/48; BP 142/52; PULSE 53; PULSE 58; PULSE 61
[2024-07-12] MEDS: LIPITOR 10 MG PO (08:28)
[2024-07-12] MEDS: SINEMET 25-100 2 TABLET PO (08:28)
[2024-07-12] MEDS: BYSTOLIC 10 MG PO (08:28)
[2024-07-12] MEDS: PRISTIQ 100 MG PO (08:28)
[2024-07-12] MEDS: NAMENDA 10 MG PO (08:28)
[2024-07-12] MEDS: NORVASC 10 MG PO (08:29)
[2024-07-12] MEDS: FEOSOL 325 MG PO (08:29)
[2024-07-12 09:25] VITALS: BP 148/59; BP 153/65; PULSE 56; O2SAT 96
--- NOTE | 2024-07-12 10:03 | CM ---
Addendum entered by Marlin Hardin RN 07/12/24 11:27:
[facility] fax: .
Original Note:
Reviewed the chart notes and spoke with the patient's spouse. Family in agreement with the patient discharging to home with [facility] who the patient has had in the past. [facility] referral sent via [facility].
Plan: Discharge to home with [facility] services. Patient's spouse will provide transportation.
[2024-07-12] MEDS: ROBITUSSIN DM 10 ML PO (10:34)
[2024-07-12 11:24] VITALS: BP 113/52
--- NOTE | 2024-07-12 11:38 | W.DCSUMMARY ---
Discharge Summary
Discharge Data
Date of Admission: 07/10/24
Date of Discharge: 07/12/24
-
Pending Results: No
Hospital Course
Primary diagnoses:
Generalized weakness and acute metabolic encephalopathy due to acute COVID infection
Secondary diagnoses:
Chronic iron deficiency anemia
Mild hyponatremia
Essential hypertension
Hyperlipidemia
Parkinson Disease
Alzheimer's dementia
Depression
Benign prostatic hypertrophy
Recent tooth infection (completed course of amoxicillin while hospitalized)
Consultants:
Neurology
Imaging:
CTA head/neck: No large vessel occlusions or aneurysms appreciated. Bilateral proximal ICA stenoses, greater on the left and likely on the order of 60-70%.
CT head: No acute intracranial abnormalities. Moderate diffuse cortical atrophy with mild nonspecific white matter changes.
CXR: No acute disease of the chest. Mild cardiomegaly.
MRI brain: No focal or acute intracranial abnormalities. Mild cortical and cerebellar atrophy with mild nonspecific white matter changes as described above. Mild bilateral ethmoid sinusitis.
Hospital course: 78-year-old male who presented with chief complaint of weakness with multiple falls as outlined in the H&P done on admission. The patient had extensive neurological imaging as above. The reasoning for this was he apparently was
dragging his left leg when EMS picked him up. While hospitalized he had 5 out of 5 strength in all 4 extremities. His generalized weakness and acute metabolic encephalopathy was due to his acute COVID infection. His chest x-ray was clear and he
was saturating well on room air. He was discharged in medically stable condition.
Discharge Plan
-
Patient Disposition: Home with Home Care
Discharge Diagnosis/Procedures: Generalized weakness and acute metabolic encephalopathy due to acute COVID infection
Condition: Good
Diet: Regular
Activity: With assistance
Driving Restrictions: No driving
Activity Restrictions/Additional Instructions:
CTA head and neck with B/L prox ICA stenoses, 60-70% - recommend outpatient evaluation by vascular surgery
Referrals:
Juan C Sethi Jr., DO [Family Provider] - in less than 1 week
Marcel Hawkins MD [Active] - (CTA head and neck with B/L prox ICA stenoses, 60-70%)
Prescriptions:
Continued
atorvastatin [Lipitor] 10 mg Tablet
10 mg PO DAILY
donepezil 10 mg Tablet
20 mg PO HS
tamsulosin [Flomax] 0.4 mg Capsule
0.4 mg PO HS
trazodone 100 mg Tablet
200 mg PO HS
amlodipine [Norvasc] 10 mg Tablet
10 mg PO DAILY
carbidopa-levodopa 25-100 mg Tablet
2 tab PO TID@0830,1500,1900
memantine 10 mg Tablet
10 mg PO BID
nebivolol [Bystolic] 10 mg Tablet
10 mg PO DAILY
desvenlafaxine succinate 100 mg Tablet Extended Release 24 Hr
100 mg PO DAILY
acetaminophen [Tylenol] 325 mg Tablet
650 mg PO BIDPRN PRN (Reason: MILD PAIN)
Discontinued
amoxicillin 500 mg Capsule
500 mg PO Q8H
Discharge Orders:
Discharge Patient (As Directed); Ordered 07/12/24
Ordered By: Mani Dyer
Discharge Date and Time
Print Language: SERBIAN
== END 2024-07-12 12:30 | disposition home health service (06) ==
LOC: 2 NORTH 13:06
PROVIDERS: Registered Nurse; ADMITTING PHYSICIAN Hospitalist; ATTENDING PHYSICIAN Internal Medicine; CONSULT PHYSICIAN Psychiatry & Neurology Neurology; EMERGENCY PHYSICIAN Emergency Medicine; FAMILY PHYSICIAN Family Medicine
DX: U07.1 COVID-19 (principal); G93.41 Metabolic encephalopathy; R53.1 Weakness; F32.A Depression, unspecified; F02.83 Dementia in other diseases classified elsewhere, unspecified severity, with mood disturbance; I12.9 Hypertensive chronic kidney disease with stage 1 through stage 4 chronic kidney disease, or unspecified chronic kidney disease; R26.2 Difficulty in walking, not elsewhere classified; H53.2 Diplopia; G20.A1 Parkinson's disease without dyskinesia, without mention of fluctuations; I51.7 Cardiomegaly; R00.1 Bradycardia, unspecified; D50.9 Iron deficiency anemia, unspecified; G30.9 Alzheimer's disease, unspecified; J32.2 Chronic ethmoidal sinusitis; E78.5 Hyperlipidemia, unspecified; N40.0 Benign prostatic hyperplasia without lower urinary tract symptoms; F17.290 Nicotine dependence, other tobacco product, uncomplicated; I65.23 Occlusion and stenosis of bilateral carotid arteries; E87.1 Hypo-osmolality and hyponatremia; G31.9 Degenerative disease of nervous system, unspecified; Z91.81 History of falling; Z85.51 Personal history of malignant neoplasm of bladder
CPT/HCPCS: 70450; 70496; 70498; 70551; 71046; 80048; 80053; 80061; 81003; 82607; 82728; 82746; 82962; 83036; 83540; 83550; 84439; 84443; 85025; 85027; 85652; 87502; 87811; 92610; 93005; 97163; 97166; 99285; G0378; Q9967

== ENCOUNTER → 2024-09-09 10:33 | Outpatient (REF) | payer MEDICARE, OTHER, SELFPAY ==
[2024-09-09 12:06] LABS: ALT (SGPT) < 10 U/L (0-50); AST (SGOT) 32 U/L (17-59); Albumin 4.5 g/dl (3.5-5.0); Alkaline Phosphatase 80 U/L (38-126); Blood Urea Nitrogen 21 mg/dl (9-20); Calcium 9.6 mg/dl (8.4-10.2); Carbon Dioxide 28 mmol/L (22-30); Chloride 107 mmol/L (98-107); Glucose 102 mg/dl (70-99); HDL Cholesterol 39 mg/dl; Iron 119 ug/dl (49-181); LDL Cholesterol, Calculated 63 mg/dl; Potassium 5.4 mmol/L (3.5-5.1); Sodium 142 mmol/L (135-145); Total Bilirubin 0.6 mg/dl (0.2-1.3); Total Cholesterol 130 mg/dl (50-199); Total Protein 6.2 g/dl (6.3-8.2); Triglyceride 140 mg/dl (10-149); Very Low Density Lipoprotein 28 mg/dl (0-30); eGFR 55.53
[2024-09-09 12:16] LABS: Percent Saturation 41 % (20-50); Total Iron Binding Capacity 289 ug/dl (261-462)
[2024-09-09 12:44] LABS: % Basophils 0.7 % (0-2); % Eosinophils 2.9 % (0-6); % Immature Granulocytes 0.3 % (0-0.5); % Monocytes 10.1 % (1.7-9.3); Absolute Eosinophils 0.2 10^3/uL (0-0.7); Absolute Lymphocytes 0.9 10^3/uL (1.2-3.4); Absolute Monocytes 0.6 10^3/uL (0.1-0.6); Absolute Neutrophils 4.2 10^3/uL (1.4-6.5); Hematocrit 32.7 % (39.0-52.0); Hemoglobin 10.9 g/dL (13.0-18.0); Mean Corp Hgb Conc. 33.3 g/dL (33.0-37.0); Mean Corpuscular Hgb 32.2 pg (27.0-31.0); Mean Corpuscular Volume 96.7 fL (80.0-94.0); Mean Platelet Volume 10.8 fL (7.4-10.4); Nucleated Red Blood Cells % 0 % (-); Platelet Count 204 10^3/uL (130-400); Red Blood Cell Count 3.38 10^6/uL (4.70-6.10)
[2024-09-09 13:02] LABS: Glycohemoglobin (HgbA1c) 4.7 % (4.0-5.6)
== END ==
LOC: RAD 10:33
PROVIDERS: ATTENDING PHYSICIAN Nurse Practitioner Adult Health; FAMILY PHYSICIAN Family Medicine
DX: R07.81 Pleurodynia (principal); N18.30 Chronic kidney disease, stage 3 unspecified; R73.9 Hyperglycemia, unspecified; E78.00 Pure hypercholesterolemia, unspecified
CPT/HCPCS: 36415; 71101; 80053; 80061; 82728; 83036; 83540; 83550; 85025

== ENCOUNTER → 2024-09-11 12:15 | Outpatient (REF) | payer MEDICARE, OTHER, SELFPAY ==
[2024-09-11 14:46] LABS: Blood Urea Nitrogen 17 mg/dl (9-20); Calcium 9.4 mg/dl (8.4-10.2); Carbon Dioxide 25 mmol/L (22-30); Chloride 105 mmol/L (98-107); Glucose 111 mg/dl (70-99); Potassium 4.7 mmol/L (3.5-5.1); Sodium 140 mmol/L (135-145); eGFR > 60.00
== END ==
LOC: REG 12:15
PROVIDERS: ATTENDING PHYSICIAN Family Medicine
DX: E87.5 Hyperkalemia (principal)
CPT/HCPCS: 36415; 80048

== ENCOUNTER → 2025-01-06 11:21 | Outpatient (REF) | payer MEDICARE, OTHER, SELFPAY ==
[2025-01-06 12:15] LABS: Hematocrit 31.8 % (39.0-52.0); Hemoglobin 10.7 g/dL (13.0-18.0); Mean Corp Hgb Conc. 33.6 g/dL (33.0-37.0); Mean Corpuscular Volume 95.8 fL (80.0-94.0); Nucleated Red Blood Cells % 0 % (-); Platelet Count 204 10^3/uL (130-400); Red Cell Dist. Width 12.4 % (11.5-14.5)
[2025-01-06 12:54] LABS: ALT (SGPT) < 10 U/L (0-50); AST (SGOT) 23 U/L (17-59); Albumin 4.6 g/dl (3.5-5.0); Alkaline Phosphatase 69 U/L (38-126); Blood Urea Nitrogen 18 mg/dl (9-20); Calcium 9.5 mg/dl (8.4-10.2); Carbon Dioxide 28 mmol/L (22-30); Chloride 106 mmol/L (98-107); Glucose 101 mg/dl (70-99); HDL Cholesterol 43 mg/dl; Iron 88 ug/dl (49-181); LDL Cholesterol, Calculated 61 mg/dl; Potassium 4.5 mmol/L (3.5-5.1); Sodium 140 mmol/L (135-145); Total Protein 6.6 g/dl (6.3-8.2); Very Low Density Lipoprotein 28 mg/dl (0-30); eGFR > 60.00
[2025-01-06 13:04] LABS: Total Iron Binding Capacity 297 ug/dl (261-462)
[2025-01-06 13:51] LABS: Ferritin 120.0 ng/ml (17.9-464.0)
[2025-01-06 14:00] LABS: Folate 8.4 ng/ml (2.76-20)
[2025-01-06 14:15] LABS: Glycohemoglobin (HgbA1c) 4.7 % (4.0-5.6)
[2025-01-06 15:24] LABS: Vitamin B12 484 pg/ml (239-931)
== END ==
LOC: REG 11:21
PROVIDERS: ATTENDING PHYSICIAN Family Medicine
DX: N18.30 Chronic kidney disease, stage 3 unspecified (principal); D64.9 Anemia, unspecified; E78.00 Pure hypercholesterolemia, unspecified; R73.9 Hyperglycemia, unspecified; E53.8 Deficiency of other specified B group vitamins
CPT/HCPCS: 36415; 80053; 80061; 82607; 82728; 82746; 83036; 83540; 83550; 85025

== ENCOUNTER 2025-04-18 15:02 | Emergency (ER) | payer MEDICARE, BC, SELFPAY ==
[2025-04-18 15:20] VITALS: BP 113/72
--- NOTE | 2025-04-18 15:29 | ED.GENMED ---
History of Present Illness
General
Chief Complaint: Flank Pain
Source: patient
Exam Limitations: none
Time Seen by Provider: 04/18/25 15:29
Nursing documentation reviewed up to this point in time: agreed with
History of Present Illness
History of Present Illness:
Patient is an 79-year-old male with past medical history of Alzheimer's hypertension bladder cancer presents to the ER for evaluation. reports 2 weeks ago patient fell 3 times and hurt his back. On he went to his family doctor and
thought it was muscular pain. Patient however still complains of with movement twisting turning and changing positions from sitting to standing excetra. reports patient is taking Tylenol however did not take anything for pain today. Patient
denies any radiation of pain. Patient denies any bowel or bladder incontinence. No urinary symptoms including no dysuria frequency no incontinence of bowel bladder. No fevers.
Past History
Past History
ED Past Medical History: Cancer (bladder), HTN and Other (dementia, parkinsonism)
ED Past Surgical History: Appendectomy
Social History
Tobacco: Former smoker
Alcohol: None
Drug: None
Personal:
Living: with family
Employment: Other
Family History
Family History: Other (Alzheimer's disease in patient's father)
Phy Exam
General Physical Exam
General Presentation: no apparent distress
General age: appears stated age
General Skin: warm and dry
General Habitus: normal
General Mental: alert
General Hydration: appears well hydrated
Neurological Exam
Neurological Exam: alert and oriented x3
Musculoskeletal Exam
Musculoskeletal Exam: other (+ tenderness to left thoracic/lumbar region mostly lateral muscle region no abrasions, no ecchymosis )
Skin Exam
Skin Exam: normal color and warm/dry
Psychiatric Exam
Psychiatric Exam: normal mood/affect
Course
Orders/Labs/Results
Orders:
Orders
04/18/25 15:34
CR Thoracic Spine 3 Views Urgent
Reason For Exam: trauma
Lumbar Spine Complete, 4 View [CR Lumbar Spine Comp Min 4 Vw*] Urgent
Comment:
Reason For Exam: trauma
04/18/25 15:38
Acetaminophen [Tylenol] 1,000 mg PO NOW STA
Lidocaine [Lidocaine 4% Patch] 1 patch TOPICAL NOW STA
Apply Lidocaine patch(s) to:: left back
Vital Signs
Initial and Last Documented VS:
Initial Vital Signs
Temp Pulse Resp BP Pulse Ox
98.9 F 58 18 113/72 98
04/18/25 15:20 04/18/25 15:20 04/18/25 15:20 04/18/25 15:20 04/18/25 15:20
Last Documented Vital Signs
Temp Pulse Resp BP Pulse Ox
98.9 F 58 18 113/72 98
04/18/25 15:20 04/18/25 15:20 04/18/25 15:20 04/18/25 15:20 04/18/25 15:41
MDM/Problems Addressed
Differential Diagnosis Includes:
not limited to: muscle strain , compression fracture
MDM/Problems Addressed:
Symptoms are consistent muscular sprain strain. symptoms started after patient fell injuring his back. He does have Parkinson's and walks with a walker. Symptoms are worse with movement. He was seen by his family doctor 3 days ago who
thought this was muscular. No acute fractures on x-ray. No head injury or headache no other injuries. With history of Parkinson's is comfortable with Tylenol. Discussed heat and close outpatient follow-up family doctor.
*Radiology
Radiology exam reviewed: radiology read reviewed
*Pulse Oximetry
SaO2: 98
Oxygen Mode of Delivery: Room air
Patient hypoxic: no
*Critical Care Note
Total Time (30-74mins, 75-104mins- exclusive of procedures): Not Applicable
ED Attending Note
-
Portions of this chart may have been created with voice recognition software.� Occasional wrong word or��sound alike� substitutions may have occurred due to the inherent limitations of voice recognition software.
Discharge Plan
Departure
Patient Disposition: Home (Routine Discharge)
Date of Disposition: 04/18/25
Time of Disposition: 18:31
Patient with high blood pressure during this ER visit?: No
Condition: Fair
Covid-19: Not Applicable
Discharge Problem:
Muscle strain
Instructions: Muscle strain
Prescriptions:
New
lidocaine 5 % adhesive patch,medicated
1 patch topical DAILY Qty: 15 0RF
No Action
atorvastatin [Lipitor] 10 mg Tablet
10 mg PO DAILY
donepezil 10 mg Tablet
20 mg PO HS
tamsulosin [Flomax] 0.4 mg Capsule
0.4 mg PO HS
trazodone 100 mg Tablet
200 mg PO HS
amlodipine [Norvasc] 10 mg Tablet
10 mg PO DAILY
carbidopa-levodopa 25-100 mg Tablet
2 tab PO TID@0830,1500,1900
memantine 10 mg Tablet
10 mg PO BID
nebivolol [Bystolic] 10 mg Tablet
10 mg PO DAILY
desvenlafaxine succinate 100 mg Tablet Extended Release 24 Hr
100 mg PO DAILY
acetaminophen [Tylenol] 325 mg Tablet
650 mg PO BIDPRN PRN (Reason: MILD PAIN)
Referrals:
Juan C Sethi Jr., DO [Family Provider, Internal Medicine]
Activity Restrictions/Additional Instructions:
Warm moist heat to back several times a day. Tylenol as needed. Lidocaine patch was sent to pharmacy use as directed. Follow-up with family doctor in the next several days return if any worsening of symptoms
Interventions
Interventions:
*Risk Screen - Suicide Last Done: 04/18/25 15:20
*General Assessment Last Done: 04/18/25 15:20
*Neglect/Abuse Screening Last Done: 04/18/25 15:20
*ED- Fall Risk Assessment Last Done: 04/18/25 15:20
*ED COVID-19 Vaccine History Last Done: 04/18/25 15:20
*ED Influenza Vaccine History Last Done: 04/18/25 15:20
DM-Pnofut-Xryzdrhjpd Assessment Last Done: 04/18/25 15:44
ED-Male Genitourinary Assessment Last Done: 04/18/25 15:44
Discharge Date and Time
Print Language: SERBIAN
[2025-04-18] MEDS: LIDOCAINE 4% PATCH 1 PATCH TOPICAL (15:43)
[2025-04-18] MEDS: TYLENOL 1000 MG PO (15:43)
[2025-04-18 15:44] VITALS: BMI 24.5
== END 2025-04-18 18:39 | disposition home or self-care (01) ==
LOC: EMR 15:02
PROVIDERS: EMERGENCY PHYSICIAN Student in an Organized Health Care Education/Training Program; FAMILY PHYSICIAN Family Medicine
DX: S39.012A Strain of muscle, fascia and tendon of lower back, initial encounter (principal); W19.XXXA Unspecified fall, initial encounter; G30.9 Alzheimer's disease, unspecified; F02.80 Dementia in other diseases classified elsewhere, unspecified severity, without behavioral disturbance, psychotic disturbance, mood disturbance, and anxiety; G20.A1 Parkinson's disease without dyskinesia, without mention of fluctuations; I10 Essential (primary) hypertension; Z87.891 Personal history of nicotine dependence; Z90.49 Acquired absence of other specified parts of digestive tract; Z85.51 Personal history of malignant neoplasm of bladder
CPT/HCPCS: 99283; 72072; 72110